=== PATIENT | female | born 1995 | race African-American/Black ===

== ENCOUNTER 2022-03-14 18:58 | Emergency (ER) | payer OTHER ==
[~2022-03-14] VITALS: Ht 170.2 cm; Wt 72.7 kg
[2022-03-14 19:51] LABS: STREP SCREEN NEGATIVE
[2022-03-14 20:30] VITALS: BP 115/78; PULSE 81; TEMP 99.6
== END 2022-03-14 20:30 | disposition home or self-care (01) ==
LOC: COL.ER 18:58
PROVIDERS: Nurse Practitioner Primary Care
DX: U07.1 COVID-19 (principal); F17.290 Nicotine dependence, other tobacco product, uncomplicated

== ENCOUNTER 2022-10-23 09:35 | Emergency (ER) | payer OTHER ==
[~2022-10-23] VITALS: Ht 167.6 cm; Wt 77.3 kg
[~2022-10-23 09:35] MED LIST: VALTREX1 GM PO
[2022-10-23 10:37] VITALS: BP 103/68; PULSE 75; TEMP 98.2
== END 2022-10-23 10:37 | disposition home or self-care (01) ==
LOC: COL.ER 09:35
DX: R21 Rash and other nonspecific skin eruption (principal)

== ENCOUNTER 2022-11-28 15:32 | Emergency (ER) | payer OTHER ==
[~2022-11-28] VITALS: Ht 167.6 cm; Wt 75.0 kg
[2022-11-28 15:38] VITALS: BP 107/68; PULSE 74; TEMP 98.3
== END 2022-11-28 16:30 | disposition left against medical advice (07) ==
LOC: COL.ER 15:32
DX: H57.89 Other specified disorders of eye and adnexa (principal)